=== PATIENT | female | born 1960 | race Caucasian/White ===

== ENCOUNTER → 2017-09-28 | Outpatient (CLI) | payer MEDICARE, OTHER ==
[~2017-09-28] MED LIST: ASPI-119 PO; BACT800T5 PO; DILAUDID PUMP; GLUCTAB PO; LEVO125T48 PO; LORA1TAB PO; METO50TA PO; MS C15TA7 PO; NEUR600T PO; NITR.4 SL; ROSU20 PO; SULF200S24 PO; TIZA2CAP PO; TRAZ50TA4 PO; ZOFR4SOL PEG
== END ==
LOC: HCAV 12:22
PROVIDERS: ATTEND Specialist
DX: R79.81 Abnormal blood-gas level (principal); E72.20 Disorder of urea cycle metabolism, unspecified
CPT/HCPCS: 36415; 36600; 82140; 82805

== ENCOUNTER 2017-12-26 10:50 | Emergency (ER) | END 2017-12-26 12:10 | disposition home or self-care (01) | DX: M62.838 Other muscle spasm (principal); I50.9 Heart failure, unspecified; I11.0 Hypertensive heart disease with heart failure; I25.10 Atherosclerotic heart disease of native coronary artery without angina pectoris; E11.9 Type 2 diabetes mellitus without complications; I25.2 Old myocardial infarction; Z79.84 Long term (current) use of oral hypoglycemic drugs | CPT/HCPCS: 96372; 99283; J2360 ==

== ENCOUNTER 2017-12-30 14:49 | Emergency (ER) | payer MEDICARE, OTHER ==
[~2017-12-30] VITALS: Ht 154.9 cm; Wt 80.0 kg
[~2017-12-30 14:49] MED LIST changes: -ASPI-119 PO; -BACT800T5 PO; +CYCL10TA PO; +FURO1TAB60 PO; +GABA300C5 PO; -GLUCTAB PO; -LEVO125T48 PO; +LISI40TA PO; -LORA1TAB PO; -METO50TA PO; -MS C15TA7 PO; -NEUR600T PO; -NITR.4 SL; +NITR0.4S SL; -ROSU20 PO; -SULF200S24 PO; -TIZA2CAP PO; -TRAZ50TA4 PO; +VITA1000 PO; -ZOFR4SOL PEG
[2017-12-30 15:00] VITALS: BP 147/89; PULSE 67; RESP 16; TEMP 98.6; O2SAT 95
[2017-12-30] MEDS ORDERED: FLUC10S PO (15:19)
[2017-12-30] MEDS ORDERED: NYST10007 TOPICAL (15:19)
--- NOTE | 2017-12-30 15:24 | PD ---
HPI Chief Complaint: Skin Problem Time Seen by Provider: 15:12 Travel History International Travel<30 days: No Contact w/Intl Traveler<30days: No Traveled to known affect area: No History of Present Illness HPI 57-year-old female with history of chronic back and leg pain, as well as obesity with pannus, presents emergency department with question of yeast infection around her umbilicus and pannus. Patient was seen by her chronic pain doctor earlier today and referred here due to her apparent yeast infection. She states it is mildly tender but more itchy, and has been draining for the past week. She has been trying to treat it at home with keeping it dry etc. without improvement. She denies fever, chills, or significant pain. Patient has no known drug allergies. PFSH Past Medical History Arthritis: Yes Blood Disorders: No Anxiety: Yes Depression: Yes Heart Rhythm Problems: Yes Cancer: Yes (BREAST AND TRACHEA) Cardiac Catheterization: Yes Cardiovascular Problems: Yes High Cholesterol: Yes Chemotherapy: Yes (2007) Chest Pain: Yes Congestive Heart Failure: Yes COPD: Yes Cerebrovascular Accident: Yes Coronary Artery Disease: Yes Diabetes: Yes Diminished Hearing: No Endocrine: Yes Gastrointestinal Disorders: Yes GERD: No Glaucoma: No Genitourinary: No Headaches: Yes Hepatitis: No Hiatal Hernia: No Hypertension: Yes Immune Disorder: No Implanted Vascular Access Dvce: Yes (INFUSAPORT RIGHT CHEST WALL) Kidney Stones: No Musculoskeletal: Yes Neurologic: Yes Psychiatric: Yes Reproductive: No Respiratory: Yes Immunizations Current: Yes Migraines: No Myocardial Infarction: Yes Radiation Therapy: Yes (2001; 2007) Renal Failure: No Seizures: No Thyroid Disease: Yes (HYPOTHYROID) Ulcer: No Menopausal: Yes : 2 Para: 1 Miscarriage: 1 Past Surgical History Abdominal Surgery: Yes (C/S, Appendectomy, Painpump insertion.) AICD: Yes Appendectomy: Yes Body Medical Devices: CARDIAC STENT; INFUSAPORT; pain pump Cardiac Surgery: Yes (INSERTION MEDTONIC PACEMAKER AND DEFIB) Coronary Stent: Yes Gynecologic Surgery: Yes (LUMPECTOMY RIGHT BREAST IN 2007) Insulin Pump: No Joint Replacement: Yes (RT KNEE) Neurologic Surgery: No Pacemaker: Yes (MEDTRONIC) Thoracic Surgery: Yes (INFUSAPORT RIGHT CHEST) Other Surgery: Yes (TRACH) Social History Alcohol Use: No Tobacco Use: No Substance Use: No Allergies-Medications (Allergen,Severity, Reaction): Coded Allergies: No Known Allergies (Verified , 01/07/14) Reported Meds & Prescriptions Reported Meds & Active Scripts Active Diflucan Liq (Fluconazole) 10 Mg/Ml Susp 150 Mg PO WEEKLY Nystop Topical (Nystatin Topical) 100,000 Unit/Gm Powd 1 Applic TOPICAL Q12HR Flexeril (Cyclobenzaprine HCl) 10 Mg Tab 10 Mg PO TID Reported Nitrostat SL (Nitroglycerin) 0.4 Mg Subl 0.4 Mg SL DIRECTED PRN 1 tablet under the tongue as needed for chest pain. Repeat every 5 minutes for a total of 3 DOSES or call 911 if NO relief. Vitamin D-1000 (Cholecalciferol) 1,000 Unit Tab 2,000 Units PO DAILY Gabapentin 300 Mg Cap 300 Mg PO HS Lasix (Furosemide) 40 Mg Tab 40 Mg PO DAILY Lisinopril 40 Mg Tab 40 Mg PO DAILY [Dilaudid Pump] Review of Systems Except as stated in HPI: all other systems reviewed are Neg General / Constitutional: No: Fever Eyes: No: Visual changes HENT: No: Headaches Cardiovascular: No: Chest Pain or Discomfort Respiratory: No: Shortness of Breath Gastrointestinal: No: Abdominal Pain Genitourinary: No: Dysuria Musculoskeletal: No: Pain Skin: Positive Rash, Positive Itching, Positive Lesions (See history of present illness.) Neurologic: No: Weakness Psychiatric: No: Depression Endocrine: No: Polydipsia Hematologic/Lymphatic: No: Easy Bruising Physical Exam Narrative GENERAL: Patient appears in no acute distress per SKIN: Warm and dry. Normal color. Normal turgor. Patient has well-demarcated erythematous moist odorous lesion to the anterior abdomen under the fold surrounding the umbilicus secondary to patient's obesity consistent with dermatophytosis. There is no sign of deep cellulitis, ulceration, or abscess. HEAD: Atraumatic. Normocephalic. EYES: Pupils equal and round. No scleral icterus. No injection or drainage. ENT: No nasal bleeding or discharge. Mucous membranes pink and moist. Pharynx is clear. Airways patent. NECK: Trachea midline. Supple and nontender. CARDIOVASCULAR: Regular rate and rhythm. RESPIRATORY: No accessory muscle use. Clear to auscultation. Breath sounds equal bilaterally. GASTROINTESTINAL: Abdomen soft, non-tender, nondistended. Hepatic and splenic margins not palpable. MUSCULOSKELETAL: Extremities without clubbing, cyanosis, or edema. No obvious deformities. NEUROLOGICAL: Awake and alert. No obvious cranial nerve deficits. Motor grossly within normal limits. Five out of 5 muscle strength in the arms and legs. Normal speech. PSYCHIATRIC: Appropriate mood and affect; insight and judgment normal. Data Data Last Documented VS Vital Signs Date Time Temp Pulse Resp B/P (MAP) Pulse Ox O2 Delivery O2 Flow Rate FiO2 12/30/17 15:00 98.6 67 16 147/89 (108) 95 MDM Medical Decision Making Medical Screen Exam Complete: Yes Emergency Medical Condition: Yes Medical Record Reviewed: Yes Differential Diagnosis Dermatophytosis. Yeast infection. Cellulitis. Narrative Course Patient is felt to be medically stable. Patient is treated with Nystop topical powder twice daily for the next 2 weeks. Patient is given Diflucan milligram per mL suspension to be taken 150 mg weekly for the next 4 weeks. Patient is to keep the area clean and dry as much as possible. Patient should follow-up with symptoms do not improve or worsen as needed. Diagnosis Primary Impression: Yeast dermatitis Patient Instructions: General Instructions, Skin Yeast Infection (ED) Additional Instructions: Patient is treated with Nystop topical powder twice daily for the next 2 weeks. Patient is given Diflucan milligram per mL suspension to be taken 150 mg weekly for the next 4 weeks. Patient is to keep the area clean and dry as much as possible. Patient should follow-up with symptoms do not improve or worsen as needed. Med/Other Pt SpecificInfo: Prescription(s) given Scripts Fluconazole Liq (Diflucan Liq) 10 Mg/Ml Susp 150 MG PO WEEKLY for Infection, #60 ML 0 Refills Prov: Abad Olson MD 12/30/17 Nystatin Topical (Nystop Topical) 100,000 Unit/Gm Powd 1 APPLIC TOPICAL Q12HR for Infection, #60 GM 0 Refills Prov: Abad Olson MD 12/30/17 Disposition: 01 DISCHARGE HOME Condition: Stable Kyaw Dahl December 30, 2017 15:24
== END 2017-12-30 16:36 | disposition home or self-care (01) ==
LOC: NEPD 14:49
DX: B37.2 Candidiasis of skin and nail (principal)
CPT/HCPCS: 99283